=== PATIENT | female | born 1985 | race Caucasian/White ===

== ENCOUNTER 2016-11-14 10:12 | Emergency (ER) | payer OTHER ==
[~2016-11-14] VITALS: Ht 160 cm; Wt 71.8 kg
[~2016-11-14 10:12] MED LIST: ADDERALL XR 2525 MG PO; LAMICTAL25 MG PO; MOTRIN600 MG PO; Motrin PO; NATALCARE RX1 TABLE1 PO; PROZAC20 MG PO; PROZAC40 MG PO; Ritalin PO; TRAMADOL HCL50 MG PO; TRAZODONE HCL100 MG PO
[2016-11-14 10:14] VITALS: BP 123/69
[2016-11-14] MEDS ORDERED: MOTRIN800 MG PO (10:59)
== END 2016-11-14 11:23 | disposition home or self-care (01) ==
LOC: EME 10:12
DX: S93.602A Unspecified sprain of left foot, initial encounter (principal); S80.211A Abrasion, right knee, initial encounter; W22.8XXA Striking against or struck by other objects, initial encounter; Y93.K1 Activity, walking an animal; F17.200 Nicotine dependence, unspecified, uncomplicated
CPT/HCPCS: 73630; 99281; 99284